=== PATIENT | male | born 1955 | race Caucasian/White ===

== ENCOUNTER 2020-10-19 02:56 | Emergency (ER) | payer MEDICARE, OTHER ==
[2020-10-19] MEDS ORDERED: Ketorolac Tromethamine 30 MG/ML VIAL ONE (03:30)
[2020-10-19] MEDS ORDERED: Ondansetron PF 4 MG/2 ML Vial ONE (03:30)
[2020-10-19] MEDS ORDERED: Fentanyl 100 MCG/2 ML VIAL ONE (03:30)
[2020-10-19 04:03] LABS: #Basophils 0.1 10x3/uL (0.0-0.2); #Eosinphils 0.3 10x3/uL (0.0-0.5); #Monocytes 0.9 10x3/uL (0.0-1.1); #Neutrophils 3.5 10x3/uL (1.5-8.4); %Basophils 0.8 % (0.0-2.0); %Eosinophils 3.5 % (0.0-6.0); %Monocytes 10.5 % (0.0-10.0); %Neutrophils 38.8 % (40.0-75.0); Hemoglobin 15.5 g/dL (13.5-17.5); Mean Corpuscular HGB CONC 35.2 g/dL (32.0-36.0); Mean Corpuscular Hemoglobin 31.3 pg (27.0-33.0); Mean Corpuscular Volume 88.9 fl (81.2-95.1); Mean Platelet Volume 10.5 fl (7.4-10.4); Platelet Count 252 10x3/uL (150-450); RBC Distribution Width 12.9 % (11.5-14.5); Red Blood Cell (RBC) Count 4.95 10x6/uL (4.32-5.72)
[2020-10-19 04:10] LABS: Anion Gap 16 mmol/L (10-20); BUN (Urea Nitrogen) 22 mg/dL (8.4-25.7); Calc. Creatinine Clearance 0 mL/min (70-130); Calcium 9.5 mg/dL (7.8-10.44); Carbon Dioxide 23 mmol/L (23-31); Chloride 106 mmol/L (98-107); Glucose 129 mg/dL (80-115); Potassium 3.8 mmol/L (3.5-5.1); Sodium 141 mmol/L (136-145)
[2020-10-19 04:50] LABS: Bilirubin Neg (Negative); Blood, Urine 250 (Negative); Clarity Cloudy (Clear); Glucose, Urine (Dipstick) Normal (Negative); Ketone, Urine 5 mg/dL (Negative); Leukocyte 25 (Negative); Nitrite Negative (Negative); Protein, Urine (Dipstick) 30 mg/dl (Neg-Trace); Specific Gravity, Urine 1.025 (1.002-1.036); Urobilinogen Normal mg/dL (Less than 2)
[2020-10-19 05:20] LABS: RBC/HPF Greater than 50 HPF (0-3)
[2020-10-19 05:21] LABS: Bacteria/HPF 1+ HPF (None Seen)
== END 2020-10-19 05:58 | disposition home or self-care (01) ==
LOC: CSHERS 02:56
DX: N13.2 Hydronephrosis with renal and ureteral calculous obstruction (principal); K21.9 Gastro-esophageal reflux disease without esophagitis; E78.5 Hyperlipidemia, unspecified; I10 Essential (primary) hypertension; Z79.899 Other long term (current) drug therapy
CPT/HCPCS: 74176; 80048; 81003; 81015; 85025; 96374; 96375; J1885; J2405; J3010

== ENCOUNTER 2022-03-15 03:41 | Emergency (ER) | payer MEDICARE, OTHER ==
[2022-03-15] MEDS ORDERED: Ondansetron PF 4 MG/2 ML Vial ONE (04:53)
[2022-03-15] MEDS ORDERED: Ketorolac Tromethamine 30 MG/ML VIAL ONE (04:53)
[2022-03-15 04:57] LABS: Bilirubin Neg (Negative); Blood, Urine 250 (Negative); Clarity Cloudy (Clear); Glucose, Urine (Dipstick) Normal (Negative); Ketone, Urine Negative (Negative); Leukocyte 25 (Negative); Nitrite Negative (Negative); Protein, Urine (Dipstick) 30 mg/dl (Neg-Trace); Urobilinogen Normal mg/dL (Less than 2)
[2022-03-15 05:06] LABS: RBC/HPF Greater than 50 HPF (0-3); Squamous Epithelial 0-3 HPF (0-3)
[2022-03-15 05:07] LABS: Bacteria/HPF Rare-Few HPF (None Seen)
[2022-03-15 05:11] LABS: #Basophils 0.1 10x3/uL (0.0-0.2); #Eosinphils 0.2 10x3/uL (0.0-0.5); #Monocytes 0.8 10x3/uL (0.0-1.1); #Neutrophils 3.6 10x3/uL (1.5-8.4); %Basophils 0.8 % (0.0-2.0); %Eosinophils 3.2 % (0.0-6.0); %Lymphocytes 34.6 % (18.0-47.0); %Monocytes 11.3 % (0.0-10.0); %Neutrophils 49.7 % (40.0-75.0); Hemoglobin 15.1 g/dL (13.5-17.5); Mean Corpuscular HGB CONC 35.6 g/dL (32.0-36.0); Mean Corpuscular Hemoglobin 30.8 pg (27.0-33.0); Mean Corpuscular Volume 86.5 fl (81.2-95.1); Mean Platelet Volume 10.5 fl (7.4-10.4); Platelet Count 222 10x3/uL (150-450); RBC Distribution Width 13.3 % (11.5-14.5); White Blood Cell (WBC) Count 7.2 10x3/uL (3.5-10.5)
[2022-03-15 05:13] LABS: ALT (SGPT) 48 U/L (8-55); AST (SGOT) 27 U/L (5-34); Albumin 4.2 g/dL (3.4-4.8); Alkaline Phosphatase 84 U/L (40-110); Anion Gap 14 mmol/L (10-20); BUN (Urea Nitrogen) 15 mg/dL (8.4-25.7); Bilirubin, Total 0.5 mg/dL (0.2-1.2); Calc. Creatinine Clearance 0 mL/min (70-130); Calcium 9.9 mg/dL (7.8-10.44); Carbon Dioxide 25 mmol/L (23-31); Chloride 106 mmol/L (98-107); Estimated GFR 53; Globulin 2.6 g/dL (2.4-3.5); Glucose 111 mg/dL (80-115); Potassium 3.7 mmol/L (3.5-5.1); Protein, Total 6.8 g/dL (5.8-8.1); Sodium 141 mmol/L (136-145)
== END 2022-03-15 05:27 | disposition home or self-care (01) ==
LOC: CSHERS 03:41
DX: N20.1 Calculus of ureter (principal); K21.9 Gastro-esophageal reflux disease without esophagitis; E78.5 Hyperlipidemia, unspecified; I10 Essential (primary) hypertension; Z79.899 Other long term (current) drug therapy
CPT/HCPCS: 80053; 81003; 81015; 85025; 96374; 96375; J1885; J2405

== ENCOUNTER 2022-03-15 22:35 | Emergency (ER) | payer MEDICARE, OTHER ==
[2022-03-16 00:21] LABS: #Basophils 0.1 10x3/uL (0.0-0.2); #Monocytes 1.5 10x3/uL (0.0-1.1); #Neutrophils 13.3 10x3/uL (1.5-8.4); %Basophils 0.3 % (0.0-2.0); %Eosinophils 0.3 % (0.0-6.0); %Lymphocytes 6.8 % (18.0-47.0); %Monocytes 9.1 % (0.0-10.0); %Neutrophils 83.2 % (40.0-75.0); Hemoglobin 15.4 g/dL (13.5-17.5); Mean Corpuscular HGB CONC 34.7 g/dL (32.0-36.0); Mean Corpuscular Hemoglobin 30.7 pg (27.0-33.0); Mean Corpuscular Volume 88.4 fl (81.2-95.1); Mean Platelet Volume 10.4 fl (7.4-10.4); Platelet Count 240 10x3/uL (150-450); RBC Distribution Width 13.2 % (11.5-14.5); Red Blood Cell (RBC) Count 5.02 10x6/uL (4.32-5.72)
[2022-03-16 00:38] LABS: ALT (SGPT) 45 U/L (8-55); AST (SGOT) 26 U/L (5-34); Albumin 4.4 g/dL (3.4-4.8); Alkaline Phosphatase 72 U/L (40-110); Anion Gap 13 mmol/L (10-20); BUN (Urea Nitrogen) 23 mg/dL (8.4-25.7); Bilirubin, Total 0.8 mg/dL (0.2-1.2); Calc. Creatinine Clearance 0 mL/min (70-130); Calcium 9.8 mg/dL (7.8-10.44); Carbon Dioxide 25 mmol/L (23-31); Chloride 105 mmol/L (98-107); Estimated GFR 31; Globulin 2.5 g/dL (2.4-3.5); Glucose 129 mg/dL (80-115); Potassium 4.2 mmol/L (3.5-5.1); Protein, Total 6.9 g/dL (5.8-8.1); Sodium 139 mmol/L (136-145)
[2022-03-16 01:55] LABS: Bilirubin Neg (Negative); Blood, Urine 250 (Negative); Clarity Cloudy (Clear); Glucose, Urine (Dipstick) Normal (Negative); Ketone, Urine 5 mg/dL (Negative); Leukocyte 100 (Negative); Nitrite Negative (Negative); Protein, Urine (Dipstick) 30 mg/dl (Neg-Trace); Urobilinogen Normal mg/dL (Less than 2)
[2022-03-16 02:07] LABS: Bacteria/HPF Rare-Few HPF (None Seen); RBC/HPF 21-50 HPF (0-3)
[2022-03-16] MEDS ORDERED: Ondansetron PF 4 MG/2 ML Vial ONE ×2 (02:11→02:12)
[2022-03-16] MEDS ORDERED: Morphine 4 MG/ML VIAL ONE (02:12)
[2022-03-16] MEDS ORDERED: cefTRIAXone\\ROCEPHIN 1 GM VIAL ONE (03:13)
== END 2022-03-16 04:12 | disposition short-term general hospital (02) ==
LOC: CSHERS 22:35
DX: N13.6 Pyonephrosis (principal); N17.9 Acute kidney failure, unspecified; K21.9 Gastro-esophageal reflux disease without esophagitis; E78.5 Hyperlipidemia, unspecified; Z87.442 Personal history of urinary calculi
CPT/HCPCS: 36415; 74176; 81001; 87077; 87086; 87186; 96365; 96375; J0696; J2270; J2405

== ENCOUNTER 2022-07-29 13:41 | Outpatient (CLI) | payer MEDICARE, OTHER | END 2022-07-29 13:42 | disposition home or self-care (01) | LOC: CSHULT 13:41 | PROVIDERS: ATTEND Urology | DX: N20.0 Calculus of kidney (principal); K76.0 Fatty (change of) liver, not elsewhere classified | CPT/HCPCS: 74018; 76770 ==

== ENCOUNTER 2022-10-16 05:59 | Day surgery (SDC) | payer MEDICARE, OTHER ==
[2022-10-14 15:27] VITALS: BMI 27.6
[2022-10-16] MEDS ORDERED: PROPOFOL 40 ML ONE (08:22)
[2022-10-16] MEDS ORDERED: Lidocaine 2% MPF 10 ML AMP (For Epidural Use) ONE (08:22)
== END 2022-10-16 09:27 | disposition home or self-care (01) ==
LOC: CSHSDC 05:59
PROVIDERS: ATTEND Internal Medicine Gastroenterology
PROC: 0DJD8ZZ Inspection of Lower Intestinal Tract, Via Natural or Artificial Opening Endoscopic (ICD-10-PCS; principal; 2022-10-16)
DX: Z12.11 Encounter for screening for malignant neoplasm of colon (principal); Z86.010 Personal history of colon polyps; K64.9 Unspecified hemorrhoids; K57.30 Diverticulosis of large intestine without perforation or abscess without bleeding; K21.9 Gastro-esophageal reflux disease without esophagitis; D29.1 Benign neoplasm of prostate; I10 Essential (primary) hypertension; E78.5 Hyperlipidemia, unspecified; Z79.899 Other long term (current) drug therapy
CPT/HCPCS: J2704

== ENCOUNTER 2023-08-27 08:06 | Outpatient (CLI) | payer MEDICARE, OTHER | END 2023-08-27 08:07 | disposition home or self-care (01) | LOC: CSHCT 08:06 | PROVIDERS: ATTEND Urology | DX: C67.8 Malignant neoplasm of overlapping sites of bladder (principal); N20.0 Calculus of kidney; N28.89 Other specified disorders of kidney and ureter | CPT/HCPCS: 74178; 82565 ==

== ENCOUNTER 2025-05-28 08:21 | Outpatient (CLI) | payer MEDICARE, OTHER | END 2025-05-28 08:22 | disposition home or self-care (01) | LOC: CSHULT 08:21 | PROVIDERS: ATTEND Family Medicine | DX: R79.89 Other specified abnormal findings of blood chemistry (principal); Z90.49 Acquired absence of other specified parts of digestive tract | CPT/HCPCS: 76700 ==